=== PATIENT | female | born 1945 | race Caucasian/White ===

== ENCOUNTER → 2017-03-17 | Outpatient (CLI) | payer OTHER | END | disposition home or self-care (01) | LOC: RAD 07:07 | DX: K57.90 Diverticulosis of intestine, part unspecified, without perforation or abscess without bleeding (principal); N20.0 Calculus of kidney; I70.90 Unspecified atherosclerosis; K76.89 Other specified diseases of liver; E27.8 Other specified disorders of adrenal gland; Z90.710 Acquired absence of both cervix and uterus | CPT/HCPCS: 74176 ==